=== PATIENT | female | born 1945 | race Caucasian/White ===

== ENCOUNTER → 2020-12-08 | Outpatient (CLI) | payer MEDICARE, OTHER | LOC: EXRD 10:02 | DX: M05.79 Rheumatoid arthritis with rheumatoid factor of multiple sites without organ or systems involvement (principal); M19.042 Primary osteoarthritis, left hand; M19.041 Primary osteoarthritis, right hand | CPT/HCPCS: 73130 ==

== ENCOUNTER → 2020-12-28 | Outpatient (CLI) | payer MEDICARE, OTHER | LOC: EXRD 12-27 09:30 | DX: M81.0 Age-related osteoporosis without current pathological fracture (principal); M85.89 Other specified disorders of bone density and structure, multiple sites | CPT/HCPCS: 77080 ==

== ENCOUNTER → 2021-09-01 | Day surgery (SDC) | payer MEDICARE, OTHER ==
[~2021-09-01] MED LIST: ALDACTONE25 MG PO; ATENOLOL100 MG PO; DITROPAN 5 MG TA5 MG PO; HUMIRA 4040 MG/0.8 SQ; KLOR-CON M2020 MEQ PO; LEFLUNOMIDE10 MG PO; LEVEMIR 10100 UNITS/ SQ; LOTENSIN40 MG PO; PREDNISONE 10 M10 MG PO; PROTONIX40 MG PO; PROZAC20 MG PO; VITAMIN B-121000 MCG PO
[2021-09-01 08:57] LABS: BUN/CREATININE RATIO 9 (0-10)
[2021-09-02 08:14] LABS: HBSAG SCREEN Negative (Negative); HEP A AB, IGM Negative (Negative); HEP B CORE AB, IGM Negative (Negative); HEP C VIRUS AB <0.1 (0.0-0.9)
[2021-09-02 12:14] LABS: ALPHA-1-ANTITRYPSIN, SERUM 200 mg/dL (101-187)
[2021-09-02 13:14] LABS: MITOCHONDRIAL (M2) ANTIBODY <20.0 Units (0.0-20.0)
== END | disposition home or self-care (01) ==
LOC: OR 07:12
PROVIDERS: Internal Medicine Gastroenterology
PROC: 0DJ08ZZ Inspection of Upper Intestinal Tract, Via Natural or Artificial Opening Endoscopic (ICD-10-PCS; principal; 2021-09-01 10:20)
DX: K74.60 Unspecified cirrhosis of liver (principal); I85.10 Secondary esophageal varices without bleeding; K76.6 Portal hypertension; K31.89 Other diseases of stomach and duodenum; K44.9 Diaphragmatic hernia without obstruction or gangrene; K22.70 Barrett's esophagus without dysplasia; K22.89 Other specified disease of esophagus; R18.8 Other ascites; D50.0 Iron deficiency anemia secondary to blood loss (chronic); I10 Essential (primary) hypertension; E11.9 Type 2 diabetes mellitus without complications; M19.90 Unspecified osteoarthritis, unspecified site; E66.9 Obesity, unspecified; Z68.28 Body mass index [BMI] 28.0-28.9, adult; Z20.822 Contact with and (suspected) exposure to COVID-19; Z88.2 Allergy status to sulfonamides; Z88.8 Allergy status to other drugs, medicaments and biological substances; Z87.891 Personal history of nicotine dependence; Z79.52 Long term (current) use of systemic steroids; Z79.899 Other long term (current) drug therapy
CPT/HCPCS: 36415; 80048; 80074; 80076; 82103; 82728; 82962; 83540; 83550; 86038; J7040